=== PATIENT | female | born 1975 | race Caucasian/White ===

== ENCOUNTER 2024-06-21 08:18 | Inpatient (IN) | payer OTHER, BC ==
[2024-06-21] VITALS (13 sets, daily range): BP systolic 125–178; BP diastolic 74–106; PULSE 71–88; RESP 12–18; TEMP 98.1–98.4; O2SAT 92–97
[~2024-06-21] VITALS: Ht 167.6 cm; Wt 105.6 kg
[~2024-06-21 08:18] MED LIST: ALBU18HF2 INH; ALBU2.5V13 NEB
[2024-06-21 09:06] LABS: URINE HCG NEGATIVE (NEG)
[2024-06-21 09:09] LABS: BILIRUBIN,URINE NEGATIVE (Neg); CLARITY,URINE CLEAR (Clear); COLOR,URINE YELLOW (Yellow); GLUCOSE, URINE NEGATIVE (Neg); KETONES,URINE NEGATIVE (Neg); LEUKOCYTE ESTERASE ,URINE NEGATIVE (Neg); NITRITES, URINE NEGATIVE (Neg); OCCULT BLOOD,URINE NEGATIVE (Neg); PROTEIN,URINE NEGATIVE (Neg); UA COLLECTION TYPE CLN CATCH MIDSTREAM; UROBILINOGEN,URINE 0.2 E.U/dL (0.2-1.0)
[2024-06-21 09:35] LABS: ALANINE AMINOTRANSFERASE 53 U/L (12-78); ALBUMIN 4.4 G/DL (3.4-5.0); ALBUMIN/GLOBULIN RATIO 1.3 (1.1-1.5); ALKALINE PHOSPHATASE 36 IU/L (46-116); ANION GAP 9 (8-16); ASPARTATE AMINO TRANSFERASE 26 U/L (10-37); BILIRUBIN,TOTAL 0.5 MG/DL (0.1-1.0); BLOOD UREA NITROGEN 24 MG/DL (7-18); BUN/CREATININE RATIO 30.4 (10.0-20.0); CALCIUM 9.4 MG/DL (8.5-10.1); CHLORIDE 104 MMOL/L (99-107); CREATININE 0.79 MG/DL (0.40-0.90); GLUCOSE 99 MG/DL (70-104); LIPASE 40 U/L (16-77); SODIUM 137 MMOL/L (135-145); TOTAL CARBON DIOXIDE 23.7 MMOL/L (24-32); TOTAL PROTEIN 7.8 G/DL (6.4-8.2); eCRCL 82 ML/MIN; eGFR 78 ML/MIN
[2024-06-21 09:52] LABS: BASOPHILS % (AUTO) 0.6 % (0-1); EOSINOPHILS # (AUTO) 0.2 X10'3 (0-0.9); EOSINOPHILS % (AUTO) 4.4 % (0-6); HEMATOCRIT 43.7 % (35.0-45.0); HEMOGLOBIN 14.7 g/dl (12.0-16.0); LYMPHOCYTES # (AUTO) 1.8 X10'3 (1.1-4.8); LYMPHOCYTES % (AUTO) 31.9 % (21-51); MEAN CORPUSCULAR HEMOGLOBIN 31.1 PG (27.0-31.0); MEAN CORPUSCULAR HGB CONC 33.7 g/dL (33.0-36.5); MEAN CORPUSCULAR VOLUME 92.4 FL (78-98); MEAN PLATELET VOLUME 8.6 FL (7.4-10.4); MONOCYTES # (AUTO) 0.5 X10'3 (0-0.9); MONOCYTES % (AUTO) 8.8 % (2-12); NEUTROPHILS # (AUTO) 3.1 X10'3 (1.8-7.7); NEUTROPHILS % (AUTO) 54.3 % (42-75); PLATELET COUNT 300 X10'3 (140-440); RED BLOOD COUNT 4.73 X10'6 (4.20-5.60); RED CELL DISTRIBUTION WIDTH 13.7 % (11.5-14.5); WHITE BLOOD COUNT 5.7 X10'3 (4.5-11.0)
[2024-06-21] MEDS ORDERED: iohexol 300mg/ml 100ml inj. ONE (13:51)
[2024-06-21] MEDS: HYDROmorphone 1 mg/ml syringe IV ONE (14:03)
[2024-06-21] MEDS: ketorolac trometh 30MG/ML vial 30 MG/ML VIAL IV ONE ×2 (14:03→21:28)
[2024-06-21] MEDS ORDERED: morphine 2 MG/ML inj. syringe IV PRN ×2 (14:15)
[2024-06-21] MEDS ORDERED: magnesium hydroxide 30ml (MOM) UD suspension PO PRN (14:15)
[2024-06-21] MEDS ORDERED: acetaminophen 325mg tablet PO PRN ×2 (14:15)
[2024-06-21] MEDS ORDERED: magnesium sulf-water 2g/50mL 50 ML IV PRN (14:15)
[2024-06-21] MEDS ORDERED: mag hydrox/Alum hydrox/simeth 30ml oral suspension PO PRN (14:15)
[2024-06-21] MEDS ORDERED: magnesium sulf-water 4G/100mL 100 ML IV PRN (14:15)
[2024-06-21] MEDS ORDERED: ondansetron/PF 4mg/2ml inj IV PRN ×2 (14:15→21:15)
[2024-06-21] MEDS ORDERED: potassium Cl 40MEQ/1/2NS 520ml 520 ML IV PRN (14:15)
[2024-06-21] MEDS ORDERED: potassium Cl 20 mEq SR tablet PO PRN ×2 (14:15)
[2024-06-21] MEDS: normal saline 1000ml 1,000 ML IV SCH (14:44)
[2024-06-21] MEDS ORDERED: hydrALAZINE 20mg/ml inj. IV PRN ×2 (14:50→20:45)
[2024-06-21] MEDS ORDERED: HYDR-3965 PO (15:21)
[2024-06-21] MEDS: diphenhydrAMINE 50 mg/ml inj IV ONE (15:38)
[2024-06-21] MEDS ORDERED: HYDROcodone/acetaminophen 5mg/325mg tablet PO PRN ×2 (15:40→21:15)
[2024-06-21] MEDS ORDERED: fentaNYL /PF 50mcg/ml 5ml ampule ONE (19:46)
[2024-06-21] MEDS ORDERED: rocuronium 10mg/ml inj IV ONE (19:46)
[2024-06-21] MEDS ORDERED: midazolam 1 mg/ML 2ml injection ONE (19:46)
[2024-06-21] MEDS ORDERED: propofol inj 20 ML IV ONE (19:46)
[2024-06-21] MEDS ORDERED: dexamethasone sod phosphate 4mg/ml inj. ONE (19:51)
[2024-06-21] MEDS ORDERED: sevoflurane 250ml liquid IH ONE (19:51)
[2024-06-21] MEDS ORDERED: ondansetron/PF 4mg/2ml inj ONE (19:51)
[2024-06-21] MEDS: docusate sod 100mg capsule PO SCH (20:00)
[2024-06-21] MEDS ORDERED: ceFOXitin 1000 MG inj ONE ×2 (20:06)
[2024-06-21] MEDS: BUPIVAcaine 2.5mg/ml inj 50ml vial (contains preservative) ONE ×2 (20:11→20:42)
[2024-06-21] MEDS ORDERED: HYDROmorphone/PF 0.2 MG/ML SYRINGE IV PRN ×2 (20:45)
[2024-06-21] MEDS ORDERED: meperidine/PF 25mg/ml syringe IV PRN ×2 (20:45)
[2024-06-21] MEDS ORDERED: ringers solution, lacted 1,000 ML IV SCH (20:45)
[2024-06-21] MEDS: diatr meglu/diatrizoate 30ml oral sol.-(3 dose) bottle PO SCH (21:00)
[2024-06-21] MEDS ORDERED: sugammadex 200mg/2ml injection IV ONE (21:02)
[2024-06-21] MEDS ORDERED: naloxone 0.4 mg/ml inj IV PRN (21:15)
[2024-06-21] MEDS: meperidine/PF 25mg/ml syringe IV PRN (21:26)
[2024-06-21] MEDS: acetaminophen 1,000mg/100ml IV 100 ML IV ONE (21:27)
[2024-06-21] MEDS: ondansetron/PF 4mg/2ml inj IV PRN (22:22)
[2024-06-21] MEDS: K and/or MAG REPLACEMENT MC SCH (23:16)
[2024-06-21] MEDS: HYDROcodone/acetaminophen 10/325mg tab PO PRN (23:24)
[2024-06-21] MEDS: diphenhydrAMINE 25mg capsule PO PRN (23:24)
[2024-06-22] VITALS (11 sets, daily range): BP systolic 118–161; BP diastolic 68–102; PULSE 69–88; RESP 16–22; TEMP 96.5–98; O2SAT 93–97
[2024-06-22] MEDS: HYDROmorphone inj. 0.5 MG/0.5 ML DISP.SYRIN IV PRN (00:12)
[2024-06-22] MEDS: ceFOXitin 1 GM/NS 100mL IVPB 100 ML IV SCH (00:14)
[2024-06-22] MEDS: HYDROmorphone 1 mg/ml syringe IV ONE (01:27)
[2024-06-22] MEDS: HYDROmorphone 1 mg/ml syringe IV PRN (04:43)
[2024-06-22 06:52] LABS: BASOPHILS % (AUTO) 0 % (0-1); EOSINOPHILS % (AUTO) 0 % (0-6); HEMATOCRIT 40.2 % (35.0-45.0); HEMOGLOBIN 13.4 g/dl (12.0-16.0); LYMPHOCYTES # (AUTO) 0.7 X10'3 (1.1-4.8); LYMPHOCYTES % (AUTO) 7.7 % (21-51); MEAN CORPUSCULAR HEMOGLOBIN 30.8 PG (27.0-31.0); MEAN CORPUSCULAR HGB CONC 33.3 g/dL (33.0-36.5); MEAN CORPUSCULAR VOLUME 92.5 FL (78-98); MEAN PLATELET VOLUME 8.4 FL (7.4-10.4); MONOCYTES # (AUTO) 0.2 X10'3 (0-0.9); MONOCYTES % (AUTO) 2.5 % (2-12); NEUTROPHILS # (AUTO) 7.7 X10'3 (1.8-7.7); NEUTROPHILS % (AUTO) 89.8 % (42-75); PLATELET COUNT 255 X10'3 (140-440); RED BLOOD COUNT 4.34 X10'6 (4.20-5.60); RED CELL DISTRIBUTION WIDTH 14.1 % (11.5-14.5); WHITE BLOOD COUNT 8.6 X10'3 (4.5-11.0)
[2024-06-22 07:14] LABS: ALANINE AMINOTRANSFERASE 127 U/L (12-78); ALBUMIN 3.8 G/DL (3.4-5.0); ALBUMIN/GLOBULIN RATIO 1.3 (1.1-1.5); ALKALINE PHOSPHATASE 46 IU/L (46-116); ANION GAP 8 (8-16); ASPARTATE AMINO TRANSFERASE 131 U/L (10-37); BILIRUBIN,TOTAL 0.5 MG/DL (0.1-1.0); BLOOD UREA NITROGEN 16 MG/DL (7-18); BUN/CREATININE RATIO 20.5 (10.0-20.0); CALCIUM 8.1 MG/DL (8.5-10.1); CHLORIDE 105 MMOL/L (99-107); CHOL/HDL RATIO 5.1 (0.00-4.99); CHOLESTEROL 239 MG/DL (0-200); CREATININE 0.78 MG/DL (0.40-0.90); GLUCOSE 125 MG/DL (70-104); HDL CHOLESTEROL 47 MG/DL (35-60); LDL CHOLESTEROL 155 MG/DL (50-100); MAGNESIUM 2.2 MG/DL (1.5-2.4); POTASSIUM 4.3 MMOL/L (3.5-5.1); SODIUM 137 MMOL/L (135-145); TOTAL CARBON DIOXIDE 23.7 MMOL/L (24-32); TOTAL PROTEIN 6.8 G/DL (6.4-8.2); TRIGLYCERIDES 81 MG/DL (20-135); eCRCL 83 ML/MIN; eGFR 79 ML/MIN
[2024-06-22] MEDS: nicotine 7mg patch - 24hr TD SCH (08:32)
[2024-06-22] MEDS: heparin, porcine 5000 units/ml vial SQ SCH (20:45)
[2024-06-23 05:56] VITALS: BP 119/77; PULSE 52; RESP 18; TEMP 96.9; O2SAT 95
[2024-06-23 06:09] LABS: BASOPHILS % (AUTO) 0.4 % (0-1); EOSINOPHILS # (AUTO) 0.2 X10'3 (0-0.9); EOSINOPHILS % (AUTO) 2.2 % (0-6); HEMATOCRIT 35.6 % (35.0-45.0); HEMOGLOBIN 11.8 g/dl (12.0-16.0); LYMPHOCYTES # (AUTO) 2.1 X10'3 (1.1-4.8); LYMPHOCYTES % (AUTO) 26.9 % (21-51); MEAN CORPUSCULAR HEMOGLOBIN 30.7 PG (27.0-31.0); MEAN PLATELET VOLUME 8.2 FL (7.4-10.4); MONOCYTES # (AUTO) 0.6 X10'3 (0-0.9); MONOCYTES % (AUTO) 7.9 % (2-12); NEUTROPHILS # (AUTO) 4.8 X10'3 (1.8-7.7); NEUTROPHILS % (AUTO) 62.6 % (42-75); PLATELET COUNT 238 X10'3 (140-440); RED BLOOD COUNT 3.83 X10'6 (4.20-5.60); RED CELL DISTRIBUTION WIDTH 14.2 % (11.5-14.5); WHITE BLOOD COUNT 7.7 X10'3 (4.5-11.0)
[2024-06-23 06:30] LABS: ALANINE AMINOTRANSFERASE 107 U/L (12-78); ALBUMIN 3.2 G/DL (3.4-5.0); ALBUMIN/GLOBULIN RATIO 1.2 (1.1-1.5); ALKALINE PHOSPHATASE 35 IU/L (46-116); ANION GAP 7 (8-16); ASPARTATE AMINO TRANSFERASE 77 U/L (10-37); BILIRUBIN,TOTAL 0.4 MG/DL (0.1-1.0); BLOOD UREA NITROGEN 10 MG/DL (7-18); BUN/CREATININE RATIO 16.1 (10.0-20.0); CALCIUM 7.8 MG/DL (8.5-10.1); CHLORIDE 108 MMOL/L (99-107); CREATININE 0.62 MG/DL (0.40-0.90); GLUCOSE 88 MG/DL (70-104); MAGNESIUM 2.1 MG/DL (1.5-2.4); POTASSIUM 3.5 MMOL/L (3.5-5.1); SODIUM 139 MMOL/L (135-145); TOTAL CARBON DIOXIDE 24.4 MMOL/L (24-32); TOTAL PROTEIN 5.8 G/DL (6.4-8.2); eCRCL 104 ML/MIN; eGFR > 90 ML/MIN
[2024-06-23] MEDS ORDERED: DOCU100C38 PO (08:59)
[2024-06-23] MEDS ORDERED: ONDA-103 PO (09:01)
[2024-06-23 09:30] VITALS: RESP 16
[2024-06-23] MEDS ORDERED: ATOR20TA66 PO (12:23)
== END 2024-06-23 09:40 | disposition home or self-care (01) | DRG 419 ==
LOC: ER 08:19 → ED HOLD 14:17 → ORTHO 4S 22:45 → SUR 3N 06-22 16:44
PROVIDERS: ADMIT Nurse Practitioner Family; ATTEND Nurse Practitioner Family
PROC: 8E0W4CZ Robotic Assisted Procedure of Trunk Region, Percutaneous Endoscopic Approach (ICD-10-PCS; 2024-06-21)
PROC: BW211ZZ Computerized Tomography (CT Scan) of Abdomen and Pelvis using Low Osmolar Contrast (ICD-10-PCS; 2024-06-21)
PROC: 0FT44ZZ Resection of Gallbladder, Percutaneous Endoscopic Approach (ICD-10-PCS; principal; 2024-06-21 19:51)
DX: K80.20 Calculus of gallbladder without cholecystitis without obstruction (principal); E78.5 Hyperlipidemia, unspecified; I10 Essential (primary) hypertension; F17.210 Nicotine dependence, cigarettes, uncomplicated; E66.812 Obesity, class 2; J45.909 Unspecified asthma, uncomplicated; K82.8 Other specified diseases of gallbladder; Z88.5 Allergy status to narcotic agent; Z87.442 Personal history of urinary calculi; Z90.711 Acquired absence of uterus with remaining cervical stump; Z98.891 History of uterine scar from previous surgery
CPT/HCPCS: 36415; 74177; 76700; 80053; 80061; 81003; 81025; 83690; 83735; 85025; 86885; 86900; 86901; 96374; 96375; 99285; A4215; A4615; A4618; A6212; A6258; A6449; A7000; G0378; J0131; J0694; J1100; J1171; J1200; J1644; J1885; J2175; J2250; J2405; J2704; J3010; J3490; J7030; J7120; Q0163; Q9967